=== PATIENT | male | born 1940 | race Caucasian/White ===

== ENCOUNTER 2022-07-14 23:54 | Inpatient (IN) | payer MEDICARE, OTHER ==
[~2022-07-14] VITALS: Ht 162.6 cm; Wt 91.6 kg
[2022-07-15] VITALS (8 sets, daily range): BP systolic 94–119; BP diastolic 49–65
[2022-07-15] MEDS ORDERED: MORPHINE SULFATE 4 MG/ML SYR/VIAL IV PRN (00:45)
[2022-07-15] MEDS ORDERED: MORPHINE SULFATE INJ 2 MG/ml SYRG IV PRN (00:45)
[2022-07-15] MEDS ORDERED: DEXTROSE (50%) 50ML SYRG IV PRN (00:45)
[2022-07-15] MEDS ORDERED: SODIUM BICARBONATE 50ML VIAL 100 ML in SOD CHL 0.45% 1,000 ML IV SCH (01:15)
[2022-07-15] MEDS ORDERED: SODIUM BICARBONATE 8.4 % INJ 50ML VIAL IV ONE (02:02)
[2022-07-15 02:26] LABS: Basophils # (auto) 0 10 ^3/uL (0-0.2); Basophils % (auto) 0.2 % (0.0-2.0); Eosinophils # (auto) 0.1 10 ^3/uL (0-0.8); Eosinophils % (auto) 0.6 % (0.0-7.0); Hematocrit 34.6 % (41.0-53.0); Hemoglobin 11.2 g/dL (13.5-17.5); Lymphocytes # (auto) 3.5 10 ^3/uL (0.4-5.4); Lymphocytes % (auto) 19.2 % (10.0-50.0); Mean Corpuscular Hemoglobin 28.8 pg (28.0-32.0); Mean Corpuscular Hgb Conc. 32.4 g/dL (32.0-36.0); Mean Corpuscular Volume 88.9 fL (80.0-100.0); Monocytes # (auto) 2.3 10 ^3/uL (0-1.3); Monocytes % (auto) 12.5 % (0.0-12.0); Neutrophils # (auto) 12.4 10 ^3/uL (1.6-8.6); Neutrophils % (auto) 67.5 % (37.0-80.0); Red Blood Cells 3.89 10^6/uL (4.5-5.90); Red Cell Distribution Width 17.7 % (11.8-14.3); White Blood Cell 18.4 10^3/uL (4.4-10.8)
[2022-07-15 02:43] LABS: Albumin 1.8 g/dL (3.4-5.0); BUN/Creatinine Ratio 34.1
[2022-07-15 02:56] LABS: Bilirubin, Total 0.4 mg/dL (0.2-1.0); Total Protein 5.4 g/dL (6.4-8.2)
[2022-07-15] MEDS ORDERED: CEFEPIME 1GM/ 50ML 50 ML IV ONE ×2 (05:00→20:30)
[2022-07-15] MEDS: MEGESTROL ACET 400MG/10ML ORAL SUSP PO SCH ×3 (06:08→18:10)
[2022-07-15] MEDS: ACCU-CHEK COMFORT CURVE STRIP VI SCH ×4 (06:09→22:14)
[2022-07-15] MEDS ORDERED: InsuLIN REG 1unit/0.01ml Soln (100units/ml) SC SCH (07:00)
[2022-07-15] MEDS: DOCUSATE SOD 100 MG CAP PO SCH (10:00)
[2022-07-15] MEDS: PANTOPRAZOLE 40 MG TAB PO SCH (11:52)
[2022-07-15] MEDS: LORazepam 0.5 MG TAB PO SCH ×2 (13:15→22:30)
[2022-07-15 13:28] LABS: Hematocrit 35.4 % (41.0-53.0); Hemoglobin 11.7 g/dL (13.5-17.5); Mean Corpuscular Hemoglobin 29.5 pg (28.0-32.0); Mean Corpuscular Volume 89.4 fL (80.0-100.0); Red Blood Cells 3.96 10^6/uL (4.5-5.90); Red Cell Distribution Width 17.6 % (11.8-14.3); White Blood Cell 16.4 10^3/uL (4.4-10.8)
[2022-07-15 13:41] LABS: Basophils % (manual) 0 (0.0-2.0); Blast Cells 0; Myelocytes % 0; Promyelocytes % 0
[2022-07-15 13:52] LABS: Albumin 1.8 g/dL (3.4-5.0); Calcium 8.5 mg/dL (8.5-10.1); Potassium 3.6 mmol/L (3.5-5.1)
[2022-07-15 13:55] LABS: Bilirubin, Total 0.4 mg/dL (0.2-1.0); Total Protein 6.2 g/dL (6.4-8.2)
[2022-07-15] MEDS: INSULIN LISPRO (HUMAN) 100 UNITS/ML ML SC SCH ×3 (14:09→22:25)
[2022-07-15] MEDS: SODIUM BICARBONATE 50ML VIAL 100 ML in SOD CHL 0.45% 1,000 ML IV SCH ×2 (14:15→23:00)
[2022-07-15 14:37] LABS: Band Neutrophils % (manual) 11; Eosinophils % (manual) 1 (0-7); Lymphocytes % (manual) 16 (10.0-50.0); Metamyelocytes % 3; Monocytes % (manual) 3 (0-12); Reactive Lymphocytes 3
[2022-07-16] MEDS: SODIUM BICARBONATE 50ML VIAL 100 ML in SOD CHL 0.45% 1,000 ML IV SCH (04:51)
[2022-07-16 05:00] VITALS: BP 110/63
[2022-07-16] MEDS: MEGESTROL ACET 400MG/10ML ORAL SUSP PO SCH ×3 (06:07→18:30)
[2022-07-16] MEDS: ACCU-CHEK COMFORT CURVE STRIP VI SCH ×4 (06:08→23:20)
[2022-07-16] MEDS: INSULIN LISPRO (HUMAN) 100 UNITS/ML ML SC SCH ×4 (06:14→23:23)
[2022-07-16 06:41] LABS: Hemoglobin 12.3 g/dL (13.5-17.5); Mean Corpuscular Hemoglobin 28.8 pg (28.0-32.0); Mean Corpuscular Hgb Conc. 32.4 g/dL (32.0-36.0); Mean Corpuscular Volume 89.1 fL (80.0-100.0); Red Blood Cells 4.26 10^6/uL (4.5-5.90); Red Cell Distribution Width 17.4 % (11.8-14.3); White Blood Cell 13.7 10^3/uL (4.4-10.8)
[2022-07-16 06:52] LABS: Basophils % (manual) 0 (0.0-2.0); Blast Cells 0; Eosinophils % (manual) 0 (0-7); Myelocytes % 0; Promyelocytes % 0
[2022-07-16 07:01] LABS: Calcium 8.9 mg/dL (8.5-10.1); Potassium 3.4 mmol/L (3.5-5.1)
[2022-07-16 07:04] LABS: Albumin 1.9 g/dL (3.4-5.0); BUN/Creatinine Ratio 33.7
[2022-07-16 07:06] LABS: Bilirubin, Total 0.5 mg/dL (0.2-1.0); Total Protein 6.4 g/dL (6.4-8.2)
[2022-07-16 08:30] VITALS: BP 106/59
[2022-07-16 08:59] LABS: Band Neutrophils % (manual) 13; Lymphocytes % (manual) 22 (10.0-50.0); Metamyelocytes % 2; Monocytes % (manual) 11 (0-12); Reactive Lymphocytes 5
[2022-07-16] MEDS: DOCUSATE SOD 100 MG CAP PO SCH (09:19)
[2022-07-16] MEDS: LORazepam 0.5 MG TAB PO SCH ×3 (09:19→23:28)
[2022-07-16] MEDS: PANTOPRAZOLE 40 MG TAB PO SCH (09:19)
[2022-07-16] MEDS ORDERED: CEFEPIME 1GM/ 50ML 50 ML IV SCH (10:00)
[2022-07-16] MEDS: ACETAMINOPHEN 500 MG TAB PO PRN ×2 (10:18→16:22)
[2022-07-16 12:25] VITALS: BP 108/60
[2022-07-16 12:35] LABS: Phosphorus 1.5 mg/dL (2.5-4.90)
[2022-07-16] MEDS ORDERED: POTASSIUM CHL 20MEQ/100ML 100 ML IV ONE (14:00)
[2022-07-16 16:20] VITALS: BP 107/53
[2022-07-16] MEDS: CEFEPIME 1GM/ 50ML 50 ML IV SCH (23:28)
[2022-07-16] MEDS: MUPIROCIN 2% OINT 15gm or 22gm FOR MRSA NARES EACHNOSTRI SCH (23:29)
[2022-07-17] MEDS: SODIUM BICARBONATE 50ML VIAL 100 ML in SOD CHL 0.45% 1,000 ML IV SCH ×3 (01:25→16:05)
[2022-07-17 05:05] VITALS: BP 136/84
[2022-07-17] MEDS: ACCU-CHEK COMFORT CURVE STRIP VI SCH ×4 (07:09→22:01)
[2022-07-17] MEDS: INSULIN LISPRO (HUMAN) 100 UNITS/ML ML SC SCH ×4 (07:14→22:04)
[2022-07-17] MEDS: INSULIN LANTUS (GLARGINE) 1 /0.01ml (100units/ml) SC SCH (07:14)
[2022-07-17] MEDS: MEGESTROL ACET 400MG/10ML ORAL SUSP PO SCH ×3 (07:15→19:42)
[2022-07-17 08:30] VITALS: BP 128/73
[2022-07-17] MEDS: CEFEPIME 1GM/ 50ML 50 ML IV SCH ×2 (09:32→22:35)
[2022-07-17] MEDS: PANTOPRAZOLE 40 MG TAB PO SCH (09:33)
[2022-07-17] MEDS: LORazepam 0.5 MG TAB PO SCH ×2 (09:33→22:00)
[2022-07-17] MEDS: DOCUSATE SOD 100 MG CAP PO SCH (09:33)
[2022-07-17] MEDS: MUPIROCIN 2% OINT 15gm or 22gm FOR MRSA NARES EACHNOSTRI SCH ×2 (09:36→22:35)
[2022-07-17 12:25] VITALS: BP 115/66
[2022-07-17 16:25] VITALS: BP 132/60
[2022-07-17 22:00] VITALS: BP 124/59
[2022-07-17] MEDS ORDERED: MORPHINE SULFATE 4 MG/ML SYR/VIAL IV PRN (22:00)
[2022-07-17] MEDS ORDERED: ASPirin 81 mg TAB PO ONE (22:15)
[2022-07-17 22:55] LABS: Basophils # (auto) 0 10 ^3/uL (0-0.2); Basophils % (auto) 0.1 % (0.0-2.0); Eosinophils # (auto) 0.3 10 ^3/uL (0-0.8); Eosinophils % (auto) 1.7 % (0.0-7.0); Hemoglobin 11.5 g/dL (13.5-17.5); Lymphocytes % (auto) 26.8 % (10.0-50.0); Mean Corpuscular Hemoglobin 28.9 pg (28.0-32.0); Mean Corpuscular Hgb Conc. 32.9 g/dL (32.0-36.0); Monocytes # (auto) 1.5 10 ^3/uL (0-1.3); Neutrophils # (auto) 11.9 10 ^3/uL (1.6-8.6); Neutrophils % (auto) 63.4 % (37.0-80.0); Nucleated Red Blood Cells % 0.1 %; Red Blood Cells 3.98 10^6/uL (4.5-5.90); Red Cell Distribution Width 17.3 % (11.8-14.3); White Blood Cell 18.8 10^3/uL (4.4-10.8)
[2022-07-17 23:08] LABS: Albumin 1.8 g/dL (3.4-5.0); BUN/Creatinine Ratio 44.1; Calcium 8.2 mg/dL (8.5-10.1); Magnesium 1.5 mg/dL (1.6-2.6); Potassium 3.3 mmol/L (3.5-5.1)
[2022-07-17 23:11] LABS: Bilirubin, Total 0.3 mg/dL (0.2-1.0)
[2022-07-17 23:18] LABS: Folate (Folic Acid) 15.15 ng/mL (5.38-24)
[2022-07-17 23:26] LABS: Phosphorus 0.9 mg/dL (2.5-4.90)
[2022-07-17] MEDS ORDERED: SOD CHL 0.45% WITH 20MEQ KCL 1,000 ML IV SCH (23:45)
[2022-07-18] MEDS ORDERED: POTASSIUM CHL 20MEQ/100ML 100 ML IV ONE (00:30)
[2022-07-18 05:00] VITALS: BP 111/58
[2022-07-18 06:44] LABS: Hematocrit 34.4 % (41.0-53.0); Hemoglobin 11.3 g/dL (13.5-17.5); Mean Corpuscular Hemoglobin 29.3 pg (28.0-32.0); Mean Corpuscular Hgb Conc. 32.9 g/dL (32.0-36.0); Mean Corpuscular Volume 88.9 fL (80.0-100.0); Red Blood Cells 3.87 10^6/uL (4.5-5.90); White Blood Cell 15.1 10^3/uL (4.4-10.8)
[2022-07-18] MEDS: INSULIN LANTUS (GLARGINE) 1 /0.01ml (100units/ml) SC SCH (06:53)
[2022-07-18] MEDS: INSULIN LISPRO (HUMAN) 100 UNITS/ML ML SC SCH ×4 (06:53→23:05)
[2022-07-18] MEDS: MAGNESIUM SULFATE 1GM/100ML 100 ML IV SCH ×2 (07:00→10:32)
[2022-07-18] MEDS: MEGESTROL ACET 400MG/10ML ORAL SUSP PO SCH ×3 (07:00→17:55)
[2022-07-18] MEDS ORDERED: SOD CHL 0.45% IV ONE (07:00)
[2022-07-18] MEDS ORDERED: POTASSIUM PHOSPHATE IV ONE (07:00)
[2022-07-18] MEDS: ACCU-CHEK COMFORT CURVE STRIP VI SCH ×4 (07:01→22:00)
[2022-07-18 07:09] LABS: Potassium 3.3 mmol/L (3.5-5.1)
[2022-07-18 07:12] LABS: Albumin 1.8 g/dL (3.4-5.0); BUN/Creatinine Ratio 43.8; Calcium 8.2 mg/dL (8.5-10.1); Magnesium 1.6 mg/dL (1.6-2.6)
[2022-07-18 07:15] LABS: Bilirubin, Total 0.4 mg/dL (0.2-1.0); Phosphorus 1.2 mg/dL (2.5-4.90); Total Protein 5.9 g/dL (6.4-8.2)
[2022-07-18 07:45] LABS: Basophils % (manual) 0 (0.0-2.0); Blast Cells 0; Metamyelocytes % 0; Promyelocytes % 0; Reactive Lymphocytes 0
[2022-07-18] MEDS ORDERED: POTASSIUM PHOSPHATE 44 MEQ in SODIUM CHL 0.9% 250 ML IV ONE ×2 (07:45→08:30)
[2022-07-18 08:00] VITALS: BP 107/71
[2022-07-18 09:00] VITALS: BP 107/71
[2022-07-18 10:23] LABS: Band Neutrophils % (manual) 1; Eosinophils % (manual) 2 (0-7); Lymphocytes % (manual) 30 (10.0-50.0); Monocytes % (manual) 6 (0-12); Myelocytes % 2
[2022-07-18] MEDS: LORazepam 0.5 MG TAB PO SCH ×2 (10:33→23:08)
[2022-07-18] MEDS: MUPIROCIN 2% OINT 15gm or 22gm FOR MRSA NARES EACHNOSTRI SCH ×2 (10:33→23:09)
[2022-07-18] MEDS: ASPirin 81 mg TAB PO SCH (10:33)
[2022-07-18] MEDS: DOCUSATE SOD 100 MG CAP PO SCH (10:34)
[2022-07-18] MEDS: PANTOPRAZOLE 40 MG TAB PO SCH (10:35)
[2022-07-18] MEDS: CEFEPIME 1GM/ 50ML 50 ML IV SCH ×2 (11:31→23:08)
[2022-07-18 13:00] VITALS: BP 105/57
[2022-07-18 17:00] VITALS: BP 136/66
[2022-07-18] MEDS: MORPHINE SULFATE INJ 2 MG/ml SYRG IV PRN (17:56)
[2022-07-18] MEDS: LINEZOLID 600MG TABLET PO SCH ×2 (18:56→23:08)
[2022-07-18 19:07] LABS: Urine Bacteria NONE SEEN /hpf (None Seen); Urine Blood 1+ /uL (Negative); Urine Budding Yeast MANY /hpf (None Seen); Urine WBC 5279 /hpf (0 - 3); Urine WBC Clumps PRESENT /hpf (None Seen)
[2022-07-18 22:00] VITALS: BP 96/57
[2022-07-19 05:00] VITALS: BP 108/56
[2022-07-19] MEDS: ACCU-CHEK COMFORT CURVE STRIP VI SCH ×4 (06:43→23:05)
[2022-07-19] MEDS: MEGESTROL ACET 400MG/10ML ORAL SUSP PO SCH ×3 (06:43→18:18)
[2022-07-19] MEDS: INSULIN LISPRO (HUMAN) 100 UNITS/ML ML SC SCH ×4 (06:50→23:05)
[2022-07-19] MEDS: INSULIN LANTUS (GLARGINE) 1 /0.01ml (100units/ml) SC SCH (06:50)
[2022-07-19 07:12] LABS: Basophils # (auto) 0.1 10 ^3/uL (0-0.2); Basophils % (auto) 0.3 % (0.0-2.0); Eosinophils # (auto) 0.3 10 ^3/uL (0-0.8); Eosinophils % (auto) 2.1 % (0.0-7.0); Hematocrit 35.1 % (41.0-53.0); Hemoglobin 11.3 g/dL (13.5-17.5); Lymphocytes # (auto) 3.5 10 ^3/uL (0.4-5.4); Lymphocytes % (auto) 22.1 % (10.0-50.0); Mean Corpuscular Hemoglobin 28.4 pg (28.0-32.0); Mean Corpuscular Hgb Conc. 32.1 g/dL (32.0-36.0); Mean Corpuscular Volume 88.6 fL (80.0-100.0); Monocytes # (auto) 1.1 10 ^3/uL (0-1.3); Monocytes % (auto) 6.9 % (0.0-12.0); Neutrophils # (auto) 10.8 10 ^3/uL (1.6-8.6); Neutrophils % (auto) 68.6 % (37.0-80.0); Nucleated Red Blood Cells % 0.1 %; Red Blood Cells 3.96 10^6/uL (4.5-5.90); Red Cell Distribution Width 17.7 % (11.8-14.3); White Blood Cell 15.7 10^3/uL (4.4-10.8)
[2022-07-19 07:25] LABS: Albumin 1.7 g/dL (3.4-5.0); Calcium 7.8 mg/dL (8.5-10.1); Magnesium 2.1 mg/dL (1.6-2.6); Potassium 3.4 mmol/L (3.5-5.1)
[2022-07-19 07:28] LABS: Bilirubin, Total 0.3 mg/dL (0.2-1.0); Phosphorus 2.6 mg/dL (2.5-4.90); Total Protein 5.7 g/dL (6.4-8.2)
[2022-07-19 07:32] LABS: BUN/Creatinine Ratio 40.6
[2022-07-19 08:00] VITALS: BP 123/54
[2022-07-19 08:51] VITALS: BP 123/54
[2022-07-19] MEDS: CEFEPIME 1GM/ 50ML 50 ML IV SCH ×2 (11:03→23:09)
[2022-07-19] MEDS: ASPirin 81 mg TAB PO SCH (11:03)
[2022-07-19] MEDS: MUPIROCIN 2% OINT 15gm or 22gm FOR MRSA NARES EACHNOSTRI SCH ×2 (11:03→23:09)
[2022-07-19] MEDS: LINEZOLID 600MG TABLET PO SCH ×2 (11:04→23:09)
[2022-07-19] MEDS: DOCUSATE SOD 100 MG CAP PO SCH (11:04)
[2022-07-19] MEDS: PANTOPRAZOLE 40 MG TAB PO SCH (11:04)
[2022-07-19] MEDS: LORazepam 0.5 MG TAB PO SCH ×2 (11:04→23:09)
[2022-07-19 13:00] VITALS: BP 102/58
[2022-07-19 16:50] VITALS: BP 106/57
[2022-07-19 22:00] VITALS: BP 128/49
[2022-07-20 05:00] VITALS: BP 108/67
[2022-07-20] MEDS: INSULIN LISPRO (HUMAN) 100 UNITS/ML ML SC SCH ×4 (06:38→22:01)
[2022-07-20] MEDS: ACCU-CHEK COMFORT CURVE STRIP VI SCH ×4 (06:38→21:59)
[2022-07-20] MEDS: INSULIN LANTUS (GLARGINE) 1 /0.01ml (100units/ml) SC SCH (06:41)
[2022-07-20] MEDS: MEGESTROL ACET 400MG/10ML ORAL SUSP PO SCH ×3 (06:48→18:12)
[2022-07-20 09:00] VITALS: BP 110/42
[2022-07-20] MEDS: PANTOPRAZOLE 40 MG TAB PO SCH (11:31)
[2022-07-20] MEDS: ASPirin 81 mg TAB PO SCH (11:31)
[2022-07-20] MEDS: DOCUSATE SOD 100 MG CAP PO SCH (11:31)
[2022-07-20] MEDS: LORazepam 0.5 MG TAB PO SCH ×2 (11:31→21:58)
[2022-07-20] MEDS: ACETAMINOPHEN 500 MG TAB PO PRN (11:31)
[2022-07-20] MEDS: CEFEPIME 1GM/ 50ML 50 ML IV SCH ×2 (11:32→21:58)
[2022-07-20] MEDS: LINEZOLID 600MG TABLET PO SCH ×2 (11:50→21:59)
[2022-07-20] MEDS: MUPIROCIN 2% OINT 15gm or 22gm FOR MRSA NARES EACHNOSTRI SCH ×2 (11:53→22:36)
[2022-07-20 13:00] VITALS: BP 132/63
[2022-07-20 16:54] VITALS: BP 104/59
[2022-07-20 22:00] VITALS: BP 105/64
[2022-07-21 05:00] VITALS: BP 116/56
[2022-07-21 05:54] LABS: Hematocrit 34.5 % (41.0-53.0); Hemoglobin 11.4 g/dL (13.5-17.5); Mean Corpuscular Hemoglobin 29.3 pg (28.0-32.0); Mean Corpuscular Hgb Conc. 32.9 g/dL (32.0-36.0); Mean Corpuscular Volume 88.9 fL (80.0-100.0); Red Blood Cells 3.88 10^6/uL (4.5-5.90); Red Cell Distribution Width 17.3 % (11.8-14.3); White Blood Cell 18.5 10^3/uL (4.4-10.8)
[2022-07-21] MEDS: ACCU-CHEK COMFORT CURVE STRIP VI SCH ×4 (05:55→22:10)
[2022-07-21] MEDS: INSULIN LANTUS (GLARGINE) 1 /0.01ml (100units/ml) SC SCH (06:07)
[2022-07-21] MEDS: INSULIN LISPRO (HUMAN) 100 UNITS/ML ML SC SCH ×4 (06:11→22:16)
[2022-07-21 06:16] LABS: Potassium 3.7 mmol/L (3.5-5.1)
[2022-07-21 06:24] LABS: Basophils % (manual) 0 (0.0-2.0); Blast Cells 0; Myelocytes % 0; Promyelocytes % 0; Reactive Lymphocytes 0
[2022-07-21 06:30] LABS: BUN/Creatinine Ratio 36.7; Bilirubin, Total 0.4 mg/dL (0.2-1.0); Calcium 8.1 mg/dL (8.5-10.1); Phosphorus 1.6 mg/dL (2.5-4.90); Total Protein 6.2 g/dL (6.4-8.2)
[2022-07-21 09:00] VITALS: BP 92/60
[2022-07-21 09:27] LABS: Band Neutrophils % (manual) 6; Eosinophils % (manual) 7 (0-7); Lymphocytes % (manual) 21 (10.0-50.0); Metamyelocytes % 2; Monocytes % (manual) 6 (0-12)
[2022-07-21] MEDS: ASPirin 81 mg TAB PO SCH (10:50)
[2022-07-21] MEDS: LORazepam 0.5 MG TAB PO SCH ×2 (10:50→22:09)
[2022-07-21] MEDS: PANTOPRAZOLE 40 MG TAB PO SCH (10:51)
[2022-07-21] MEDS: CEFEPIME 1GM/ 50ML 50 ML IV SCH ×2 (10:56→22:16)
[2022-07-21] MEDS: LINEZOLID 600MG TABLET PO SCH ×2 (11:12→22:09)
[2022-07-21] MEDS: DOCUSATE SOD 100 MG CAP PO SCH (11:15)
[2022-07-21] MEDS: MEGESTROL ACET 400MG/10ML ORAL SUSP PO SCH ×3 (11:20→17:00)
[2022-07-21] MEDS: MUPIROCIN 2% OINT 15gm or 22gm FOR MRSA NARES EACHNOSTRI SCH (11:26)
[2022-07-21 13:00] VITALS: BP 125/51
[2022-07-21] MEDS ORDERED: FUROSEMIDE 40 MG/4 ML VIAL IV ONE (13:45)
[2022-07-21] MEDS ORDERED: FUROSEMIDE 40 MG/4 ML VIAL ONE (13:59)
[2022-07-21 17:00] VITALS: BP 113/71
[2022-07-21] MEDS ORDERED: FLUCONAZOLE 200MG/100ML 100 ML IV SCH (22:30)
[2022-07-21] MEDS ORDERED: FLUCONAZOLE 100 MG TAB PO ONE (22:45)
[2022-07-21] MEDS: SODIUM BICARBONATE 50ML VIAL 50 ML in SOD CHL 0.45% 1,000 ML IV SCH (23:30)
[2022-07-22] MEDS: PIPERACILLIN-TAZOB 3.375GM 100 ML IV SCH ×4 (00:45→18:08)
[2022-07-22] MEDS: MICAFUNGIN SODIUM 100 MG in SODIUM CHL 0.9% 100 ML IV SCH (01:00)
[2022-07-22 05:44] VITALS: BP 130/66
[2022-07-22 06:11] LABS: Basophils # (auto) 0.1 10 ^3/uL (0-0.2); Basophils % (auto) 0.5 % (0.0-2.0); Eosinophils # (auto) 0.3 10 ^3/uL (0-0.8); Hematocrit 35.2 % (41.0-53.0); Hemoglobin 11.9 g/dL (13.5-17.5); Lymphocytes # (auto) 3.8 10 ^3/uL (0.4-5.4); Mean Corpuscular Hemoglobin 29.9 pg (28.0-32.0); Mean Corpuscular Hgb Conc. 33.7 g/dL (32.0-36.0); Mean Corpuscular Volume 88.8 fL (80.0-100.0); Monocytes # (auto) 1.1 10 ^3/uL (0-1.3); Monocytes % (auto) 7.9 % (0.0-12.0); Neutrophils # (auto) 9.2 10 ^3/uL (1.6-8.6); Neutrophils % (auto) 63.6 % (37.0-80.0); Nucleated Red Blood Cells % 0.1 %; Red Blood Cells 3.97 10^6/uL (4.5-5.90); Red Cell Distribution Width 17.1 % (11.8-14.3); White Blood Cell 14.5 10^3/uL (4.4-10.8)
[2022-07-22] MEDS: MEGESTROL ACET 400MG/10ML ORAL SUSP PO SCH ×3 (06:16→16:09)
[2022-07-22] MEDS: ACCU-CHEK COMFORT CURVE STRIP VI SCH ×4 (06:17→22:17)
[2022-07-22] MEDS: INSULIN LANTUS (GLARGINE) 1 /0.01ml (100units/ml) SC SCH (06:28)
[2022-07-22] MEDS: INSULIN LISPRO (HUMAN) 100 UNITS/ML ML SC SCH ×4 (06:28→22:28)
[2022-07-22 06:29] LABS: Bilirubin, Total 0.5 mg/dL (0.2-1.0); Calcium 7.9 mg/dL (8.5-10.1); Magnesium 1.8 mg/dL (1.6-2.6); Phosphorus 1.3 mg/dL (2.5-4.90)
[2022-07-22 09:04] VITALS: BP 102/52
[2022-07-22] MEDS: MUPIROCIN 2% OINT 15gm or 22gm FOR MRSA NARES EACHNOSTRI SCH ×2 (09:23→22:17)
[2022-07-22] MEDS: ASPirin 81 mg TAB PO SCH (09:23)
[2022-07-22] MEDS: LINEZOLID 600MG TABLET PO SCH ×2 (09:24→22:17)
[2022-07-22] MEDS: DOCUSATE SOD 100 MG CAP PO SCH (09:24)
[2022-07-22] MEDS: PANTOPRAZOLE 40 MG TAB PO SCH (09:24)
[2022-07-22] MEDS: LORazepam 0.5 MG TAB PO SCH ×2 (09:24→22:17)
[2022-07-22] MEDS ORDERED: FLUCONAZOLE 100 MG TAB PO SCH (10:00)
[2022-07-22 13:00] VITALS: BP 121/63
[2022-07-22] MEDS ORDERED: POTASSIUM CHL 20 Meq TABLET PO ONE (14:00)
[2022-07-22] MEDS ORDERED: MAGNESIUM SULFATE 1GM/100ML 100 ML IV ONE (14:00)
[2022-07-22] MEDS: SODIUM BICARBONATE 50ML VIAL 50 ML in SOD CHL 0.45% 1,000 ML IV SCH (16:05)
[2022-07-22] MEDS: MORPHINE SULFATE INJ 2 MG/ml SYRG IV PRN (16:36)
[2022-07-22 16:43] VITALS: BP 117/59
[2022-07-22] MEDS: POTASSIUM CHL 20 Meq TABLET PO SCH (18:07)
[2022-07-22 22:00] VITALS: BP 107/53
[2022-07-23] MEDS: POTASSIUM CHL 20 Meq TABLET PO SCH ×4 (00:05→18:16)
[2022-07-23] MEDS: PIPERACILLIN-TAZOB 3.375GM 100 ML IV SCH ×4 (00:06→18:15)
[2022-07-23] MEDS: MICAFUNGIN SODIUM 100 MG in SODIUM CHL 0.9% 100 ML IV SCH (01:12)
[2022-07-23 05:00] VITALS: BP 98/98
[2022-07-23] MEDS: SODIUM BICARBONATE 50ML VIAL 50 ML in SOD CHL 0.45% 1,000 ML IV SCH (06:00)
[2022-07-23] MEDS: ACCU-CHEK COMFORT CURVE STRIP VI SCH ×3 (06:19→18:15)
[2022-07-23] MEDS: INSULIN LISPRO (HUMAN) 100 UNITS/ML ML SC SCH ×3 (06:19→18:28)
[2022-07-23] MEDS: MEGESTROL ACET 400MG/10ML ORAL SUSP PO SCH ×3 (06:19→18:15)
[2022-07-23] MEDS: INSULIN LANTUS (GLARGINE) 1 /0.01ml (100units/ml) SC SCH (06:25)
[2022-07-23 08:30] VITALS: BP 108/50
[2022-07-23] MEDS: LINEZOLID 600MG TABLET PO SCH (09:18)
[2022-07-23] MEDS: DOCUSATE SOD 100 MG CAP PO SCH (09:18)
[2022-07-23] MEDS: ASPirin 81 mg TAB PO SCH (09:18)
[2022-07-23] MEDS: LORazepam 0.5 MG TAB PO SCH (09:18)
[2022-07-23] MEDS: PANTOPRAZOLE 40 MG TAB PO SCH (09:18)
[2022-07-23] MEDS: MUPIROCIN 2% OINT 15gm or 22gm FOR MRSA NARES EACHNOSTRI SCH (09:19)
[2022-07-23 10:05] LABS: Albumin 2.1 g/dL (3.4-5.0); Calcium 7.8 mg/dL (8.5-10.1); Potassium 3.8 mmol/L (3.5-5.1)
[2022-07-23 11:57] LABS: Bilirubin, Total 0.6 mg/dL (0.2-1.0); Total Protein 5.6 g/dL (6.4-8.2)
[2022-07-23 16:43] VITALS: BP 106/61
[2022-07-23 18:20] LABS: Basophils # (auto) 0.1 10 ^3/uL (0-0.2); Basophils % (auto) 0.4 % (0.0-2.0); Eosinophils # (auto) 0.3 10 ^3/uL (0-0.8); Eosinophils % (auto) 1.7 % (0.0-7.0); Hematocrit 36.3 % (41.0-53.0); Hemoglobin 11.6 g/dL (13.5-17.5); Lymphocytes # (auto) 4.5 10 ^3/uL (0.4-5.4); Lymphocytes % (auto) 29.4 % (10.0-50.0); Mean Corpuscular Hemoglobin 29.2 pg (28.0-32.0); Mean Corpuscular Hgb Conc. 31.9 g/dL (32.0-36.0); Mean Corpuscular Volume 91.4 fL (80.0-100.0); Monocytes # (auto) 1.3 10 ^3/uL (0-1.3); Monocytes % (auto) 8.5 % (0.0-12.0); Neutrophils # (auto) 9.3 10 ^3/uL (1.6-8.6); Red Blood Cells 3.97 10^6/uL (4.5-5.90); Red Cell Distribution Width 18.7 % (11.8-14.3); White Blood Cell 15.5 10^3/uL (4.4-10.8)
== END 2022-07-23 21:05 | DRG 689 ==
LOC: OVERFLOW 23:54 → WEST WING 23:54 → UNDOADMIN 23:54
PROVIDERS: ADMIT Internal Medicine Infectious Disease; ATTEND Internal Medicine Infectious Disease
PROC: 05HB33Z Insertion of Infusion Device into Right Basilic Vein, Percutaneous Approach (ICD-10-PCS; principal; 2022-07-16)
PROC: B54MZZA Ultrasonography of Right Upper Extremity Veins, Guidance (ICD-10-PCS; 2022-07-16)
DX: N13.6 Pyonephrosis (principal); I21.4 Non-ST elevation (NSTEMI) myocardial infarction; B37.49 Other urogenital candidiasis; E87.20 Acidosis, unspecified; I13.0 Hypertensive heart and chronic kidney disease with heart failure and stage 1 through stage 4 chronic kidney disease, or unspecified chronic kidney disease; M86.9 Osteomyelitis, unspecified; E46 Unspecified protein-calorie malnutrition; N17.9 Acute kidney failure, unspecified; E86.1 Hypovolemia; N18.9 Chronic kidney disease, unspecified; E11.22 Type 2 diabetes mellitus with diabetic chronic kidney disease; R32 Unspecified urinary incontinence; Z20.822 Contact with and (suspected) exposure to COVID-19; B95.8 Unspecified staphylococcus as the cause of diseases classified elsewhere; I25.10 Atherosclerotic heart disease of native coronary artery without angina pectoris; I50.9 Heart failure, unspecified; B96.5 Pseudomonas (aeruginosa) (mallei) (pseudomallei) as the cause of diseases classified elsewhere; E11.69 Type 2 diabetes mellitus with other specified complication; E66.9 Obesity, unspecified; E83.39 Other disorders of phosphorus metabolism; E87.6 Hypokalemia; Z78.9 Other specified health status; Z86.73 Personal history of transient ischemic attack (TIA), and cerebral infarction without residual deficits; Z68.33 Body mass index [BMI] 33.0-33.9, adult; Z87.442 Personal history of urinary calculi; Z88.2 Allergy status to sulfonamides; Z98.61 Coronary angioplasty status; Z88.5 Allergy status to narcotic agent
CPT/HCPCS: 36415; 70450; 71045; 73630; 74176; 76775; 78707; 80053; 81001; 82140; 82607; 82746; 82962; 83605; 83735; 84100; 84132; 84484; 85007; 85025; 85027; 87040; 87077; 87081; 87086; 87088; 87147; 87186; 87205; 87426; 93005; 93306; 97163; G0378; J1815; J2248; J2543; J3480